=== PATIENT | male | born 1995 | race American Indian/Alaskan Native ===

== ENCOUNTER 2020-02-21 14:08 | Emergency (ER) ==
[2020-02-21 14:51] VITALS: BP 115/50
--- NOTE | 2020-02-21 14:51 | Emergency Department Report ---
Chief Complaint: Urogenital-Male Stated Complaint: DISCOMFORT WHEN UNRINATING - HPI History of Present Illness: 24-year-old -[place] male presents to the emergency room of [facility] discharge dysuria x2 to 3 days. Denies any fever chills no nausea no vomiting no abdominal pain chest pain or shortness of breath. Does admit to having unprotected intercourse. - Exam Physical Exam: Alert and oriented x3 no acute distress nontoxic in appearance Lungs nonlabored breathing no use of accessory muscles Back full range of motion Ambulatory without difficulties MSE screening note: Focused history and physical exam performed. Due to findings the following was ordered: 24-year-old -[place] male presents to the emergency room of [facility] discharge dysuria x2 to 3 days. Denies any fever chills no nausea no vomiting no abdominal pain chest pain or shortness of breath. Does admit to having unprotected intercourse. ED Disposition for MSE Disposition: MED SCREENING EXAM-LEFT Is pt being admited?: No Does the pt Need Aspirin: No Condition: Stable Additional Instructions: Follow-up with the health department or urgent care. Referrals: [facility] [Outside] - 3-5 Days [facility] [Outside] - 3-5 Days
== END 2020-02-21 15:32 | disposition left against medical advice (07) ==
LOC: ED 14:08